=== PATIENT | male | born 1970 | race Caucasian/White ===

== ENCOUNTER 2016-06-28 06:01 | Emergency (ER) | payer OTHER ==
[~2016-06-28] VITALS: Ht 185.4 cm; Wt 110.1 kg
[2016-06-28 06:05] VITALS: TEMP 36.9; Ht 185.4 cm; Wt 110.1 kg
[2016-06-28] MEDS ORDERED: IBUP1CAP9 PO (06:31)
[2016-06-28] MEDS ORDERED: ALBUT/IPRATROP 3MG/0.5MG NEB 3 ML VIAL INH STA (06:48)
[2016-06-28] MEDS ORDERED: SODIUM CHLORIDE 0.9% 1000ML 2,000 ML IV STA (06:48)
--- NOTE | 2016-06-28 07:05 | EMERGENCY ROOM VISIT NOTE ---
History Report prepared by Jeromeibfreddy: Nikunj Jara Under the Supervision of: Dr. Hilary Hoffmann M.D. First contact with patient: 06:41 Chief Complaint: FLU LIKE SX Stated Complaint: FEVER,SOB,CHEST PAINS,ACHE ALL OVER,VOMITING History of Present Illness The patient is a 46 year old male who presents to the Emergency Room with complaints of persistent flu-like symptoms that started five days ago. The patient notes that he became febrile three days ago. This morning his temperature reached 103.5, which prompted his visit to the ED. The patient's other symptoms include headache, shortness of breath, generalized body aches, vomiting, and diarrhea. The patient's vomit and stools did not contain blood. The patient had ibuprofen prior to arrival. He denies any significant history of headaches. The patient smokes one pack of cigarettes per day. Source of History: patient Onset: five days ago Position: other (global) Quality: other (flu-like symptoms) Timing: other (persistent) Associated Symptoms: + SOB, + diarrhea, + fevers, + headache, + nausea, + vomiting Review of Systems See HPI for pertinent positives & negatives. A total of 10 systems reviewed and were otherwise negative. Past Medical & Surgical Tobacco dependency Social History Smoking Status: Current Every Day Smoker Alcohol Use: none Drug Use: none Marital Status: Housing Status: lives with family Occupation Status: employed Current/Historical Medications Scheduled Amoxicillin & Pot Clavulanate (Augmentin 875-125 mg), 875 MG PO BID Scheduled PRN Ibuprofen (Ibuprofen), 800 MG PO DAILY PRN for Pain or Fever Allergies Coded Allergies: No Known Allergies (Unverified , 06/28/16) Physical Exam Vital Signs Date Time Temp Pulse Resp B/P Pulse Ox O2 Delivery O2 Flow Rate FiO2 06/28/16 08:48 102 20 134/83 98 06/28/16 07:14 102 20 130/82 98 Room Air 06/28/16 06:05 36.9 114 24 126/82 96 Room Air Physical Exam Vital signs reviewed. General: Disheveled, malodorous male, in no significant distress. HEENT: No scleral icterus, PERRLA, neck supple. Atraumatic. Cardiovascular: Mildly tachycardic, regular rhythm, no extra sounds. Pulmonary: Clear to auscultation bilaterally, normal work of breathing. Abdomen: Soft, nontender, nondistended, positive bowel sounds. Musculoskeletal: Atraumatic, no peripheral edema. Neurologic: Patient awake alert and oriented x 3, full strength in all 4 extremities. Cranial nerves 2 through 12 grossly intact. Skin: Warm, dry, no rash Medical Decision & Procedures ER Provider Diagnostic Interpretation: X-ray results as stated below per my interpretation and radiologist interpretation. Other radiology results as stated below per my review and radiologist interpretation: CHEST 2 VIEWS ROUTINE CLINICAL HISTORY: fever, cough dyspnea COMPARISON STUDY: No previous studies for comparison. FINDINGS: Subtle bronchovascular prominence. No focal infiltrate. No evidence for significant cardiac enlargement. Diaphragms smooth. IMPRESSION: Mild bronchitis. No focal infiltrate. Electronically signed by: Param Restrepo M.D. 06/28/2016 7:52 AM Dictated Date/Time: 06/28/2016 7:[address]AST CT DOSE: 537.48 mGy.cm HISTORY: Dyspnea MAY mental status change TECHNIQUE: Multiaxial CT images of the head were performed without the use of intravenous contrast. Comparison: None. Findings: Moderate mucosal thickening of the sinuses. Mastoid air cells are clear. Air-fluid level within the right maxillary sinus. The calvarium and skull base are intact. The ventricles and sulci are within normal limits. There is no mass, hematoma, midline shift, or acute infarct. Impression: No acute intracranial abnormality. Moderate sinus disease Electronically signed by: Param Restrepo M.D. 06/28/2016 7:40 AM Dictated Date/Time: 06/28/2016 7:37 AM Laboratory Results 06/28/16 07:15 Red Blood Count 4.12, Mean Corpuscular Volume 99.8, Mean Corpuscular Hemoglobin 34.2, Mean Corpuscular Hemoglobin Concent 34.3, Mean Platelet Volume 9.9, Neutrophils (%) (Auto) 83.1, Lymphocytes (%) (Auto) 8.9, Monocytes (%) (Auto) 7.5, Eosinophils (%) (Auto) 0.1, Basophils (%) (Auto) 0.3, Neutrophils # (Auto) 5.89, Lymphocytes # (Auto) 0.63, Monocytes # (Auto) 0.53, Eosinophils # (Auto) 0.01, Basophils # (Auto) 0.02 06/28/16 07:15 Test 06/28/16 07:15 White Blood Count 7.09 K/uL (4.8-10.8) Red Blood Count 4.12 M/uL (4.7-6.1) Hemoglobin 14.1 g/dL (14.0-18.0) Hematocrit 41.1 % (42-52) Mean Corpuscular Volume 99.8 fL (80-100) Mean Corpuscular Hemoglobin 34.2 pg (25-34) Mean Corpuscular Hemoglobin Concent 34.3 g/dl (32-36) Platelet Count 219 K/uL (130-400) Mean Platelet Volume 9.9 fL (7.4-10.4) Neutrophils (%) (Auto) 83.1 % Lymphocytes (%) (Auto) 8.9 % Monocytes (%) (Auto) 7.5 % Eosinophils (%) (Auto) 0.1 % Basophils (%) (Auto) 0.3 % Neutrophils # (Auto) 5.89 K/uL (1.4-6.5) Lymphocytes # (Auto) 0.63 K/uL (1.2-3.4) Monocytes # (Auto) 0.53 K/uL (0.11-0.59) Eosinophils # (Auto) 0.01 K/uL (0-0.5) Basophils # (Auto) 0.02 K/uL (0-0.2) RDW Standard Deviation 46.7 fL (36.4-46.3) RDW Coefficient of Variation 12.7 % (11.5-14.5) Immature Granulocyte % (Auto) 0.1 % Immature Granulocyte # (Auto) 0.01 K/uL (0.00-0.02) Anion Gap 8.0 mmol/L (3-11) Est Creatinine Clear Calc Drug Dose 93.3 ml/min Estimated GFR () 76.4 Estimated GFR (Non- 65.9 BUN/Creatinine Ratio 13.1 (10-20) Calcium Level 8.2 mg/dl (8.5-10.1) Total Bilirubin 0.2 mg/dl (0.2-1) Direct Bilirubin < 0.1 mg/dl (0-0.2) Aspartate Amino Transf (AST/SGOT) 32 U/L (15-37) Alanine Aminotransferase (ALT/SGPT) 32 U/L (12-78) Alkaline Phosphatase 71 U/L (45-117) Total Protein 6.6 gm/dl (6.4-8.2) Albumin 3.6 gm/dl (3.4-5.0) Influenza Type A Antigen POS for Influ A (NEG) Influenza Type B Antigen Neg for Influ B (NEG) Laboratory results per my review. Medications Administered Medications (Trade) Dose Ordered Sig/Dionna Route Start Time Stop Time Status Last Admin Dose Admin Albuterol/ Ipratropium 3 ml 3 ml NOW STAT INH 06/28/16 06:48 06/28/16 06:50 DC 06/28/16 07:13 3 ML Sodium Chloride 2,000 ml @ 999 mls/hr Q2H1M STAT IV 06/28/16 06:48 06/28/16 08:48 DC 06/28/16 07:13 999 MLS/HR Ampicillin Sodium/ Sulbactam Sodium/ Sodium Chloride (Unasyn Inj/Nss 100ml) 108 ml @ 200 mls/hr ONE ONCE IV 06/28/16 08:00 06/28/16 08:32 DC 06/28/16 08:23 200 MLS/HR Acetaminophen (Tylenol Tab) 650 mg NOW STAT PO 06/28/16 07:57 06/28/16 07:58 DC 06/28/16 08:24 650 MG Amoxicillin/ Clavulanate Potassium (Augmentin Tab) 875 mg ONE ONCE PO 06/28/16 08:30 06/28/16 08:31 DC 06/28/16 08:26 875 MG ECG Indication: SOB/dyspnea Rate (beats per minute): 101 Rhythm: sinus tachycardia Findings: nonspecific-ST abn (Anterolateral), no ectopy ED Course 0645: Past medical records reviewed. The patient was evaluated in room B2. A complete history and physical examination was performed. 0648: NSS 2000 ml @ 999 mls/hr, DuoNeb 3 ml INH. 0757: Tylenol 650 mg PO. 0800: Ampicillin Sodium / Sulbactam Sodium 3000 mg / NSS 108 ml @ 200 mls/hr. 0825: Reassessed the patient. Discussed the findings with him. He verbalized understanding of the treatment plan. The patient is ready for discharge. 0830: Augmentin 875 mg PO. Medical Decision Differential diagnosis: Influenza, other viral illness, pneumonia, urinary tract infection, metabolic abnormality, medication effect, cellulitis, meningitis, intra-abdominal source. This patient was evaluated and appeared to be in some discomfort. IV access was obtained and laboratory work was drawn. The patient was placed on the groundwater monitoring technician. CT scan of the head was performed due to patient's complaint of headache. This study is indicative of an acute sinusitis. Patient was hydrated with normal saline solution, given a DuoNeb treatment. Patient was placed on Unasyn 3 g IV due to complaints of nausea and vomiting and the apparent sinus infection. Patient will be placed on Augmentin 875 mg twice daily for 10 days. Patient has tested positive for influenza A. He is outside of the window of treatment with Tamiflu. He will continue Tylenol and ibuprofen as needed for pain or fever and drink plenty of fluids. He will follow-up with his physician for reevaluation this week and return to the ER for worsening symptoms or any medical concerns. Impression Primary Impression: Sinusitis, acute maxillary Additional Impression: Influenza Scribe Attestation The scribe's documentation has been prepared under my direction and personally reviewed by me in its entirety. I confirm that the note above accurately reflects all work, treatment, procedures, and medical decision making performed by me. Departure Information Dispostion Home / Self-Care Prescriptions Amoxicillin & Pot Clavulanate (Augmentin 875-125 mg) 1 Tab Tab 875 MG PO BID for 10 Days, #20 TAB Prov: Hilary Hoffmann M.D. 06/28/16 Referrals Bassam Coles M.D.([facility]) (PCP) Forms HOME CARE DOCUMENTATION FORM, IMPORTANT VISIT INFORMATION Patient Instructions My [facility] Additional Instructions Diagnosis: Influenza, acute sinusitis Augmentin 875 mg twice daily for 10 days. Afrin nasal spray to sprays every 12 hours for 3 days. Tylenol 650 mg every 6 hours as needed for pain or fever. Ibuprofen 600 mg every 6 hours as needed for pain or fever. Drink plenty of clear fluids. Follow-up with your physician this week for reevaluation. Return to the ER for worsening of symptoms or any medical concerns. Problem Qualifiers Primary Impression: Sinusitis, acute maxillary Recurrence: not specified as recurrent Qualified Codes: J01.00 - Acute maxillary sinusitis, unspecified
[2016-06-28 07:37] LABS: BASO % 0.3 %; BASO ABS # 0.02 K/uL (0-0.2); COMPLETE YES; EOS % 0.1 %; HEMATOCRIT 41.1 % (42-52); IG% 0.1 %; LYMPH % 8.9 %; LYMPH ABS # 0.63 K/uL (1.2-3.4); MEAN CELL VOLUME 99.8 fL (80-100); MEAN CORPUSCULAR HEMOGLOBIN 34.2 pg (25-34); MEAN CORPUSCULAR HGB CONC 34.3 g/dl (32-36); MEAN PLATELET VOLUME 9.9 fL (7.4-10.4); MONO % 7.5 %; NEUT % 83.1 %; PLATELET COUNT 219 K/uL (130-400); RED BLOOD COUNT 4.12 M/uL (4.7-6.1); WHITE BLOOD COUNT 7.09 K/uL (4.8-10.8)
--- NOTE | 2016-06-28 07:41 | DIAGNOSTIC IMAGING REPORT ---
HEAD CT NONCONTRAST CT DOSE: 537.48 mGy.cm HISTORY: Dyspnea MAY mental status change TECHNIQUE: Multiaxial CT images of the head were performed without the use of intravenous contrast. Comparison: None. Findings: Moderate mucosal thickening of the sinuses. Mastoid air cells are clear. Air-fluid level within the right maxillary sinus. The calvarium and skull base are intact. The ventricles and sulci are within normal limits. There is no mass, hematoma, midline shift, or acute infarct. Impression: No acute intracranial abnormality. Moderate sinus disease Electronically signed by: Param Restrepo M.D. 06/28/2016 7:40 AM Dictated Date/Time: 06/28/2016 7:37 AM
[2016-06-28 07:47] LABS: ALT/SGPT 32 U/L (12-78); BLOOD UREA NITROGEN 17 mg/dl (7-18); BUN/CREATININE RATIO 13.1 (10-20); CALCIUM 8.2 mg/dl (8.5-10.1); CARBON DIOXIDE 26 mmol/L (21-32); CHLORIDE 105 mmol/L (98-107); GLUCOSE 103 mg/dl (70-99); POTASSIUM 4.1 mmol/L (3.5-5.1); SODIUM 139 mmol/L (136-145)
[2016-06-28 07:50] LABS: ALKALINE PHOSPHATASE 71 U/L (45-117); AST/SGOT 32 U/L (15-37)
--- NOTE | 2016-06-28 07:53 | DIAGNOSTIC IMAGING REPORT ---
CHEST 2 VIEWS ROUTINE CLINICAL HISTORY: fever, cough dyspnea COMPARISON STUDY: No previous studies for comparison. FINDINGS: Subtle bronchovascular prominence. No focal infiltrate. No evidence for significant cardiac enlargement. Diaphragms smooth. IMPRESSION: Mild bronchitis. No focal infiltrate. Electronically signed by: Param Restrepo M.D. 06/28/2016 7:52 AM Dictated Date/Time: 06/28/2016 7:51 AM
[2016-06-28] MEDS ORDERED: ACETAMINOPHEN 325 MG TAB PO STA (07:57)
[2016-06-28] MEDS ORDERED: AMPICILLIN/SULBACTAM SOD INJ 3,000 MG in SODIUM CHLORIDE 0.9% 100ML 100 ML IV ONE (08:00)
[2016-06-28] MEDS ORDERED: AMOX875T PO (08:23)
[2016-06-28] MEDS ORDERED: AMOXICILLIN/CLAVULANATE TAB 875 MG TAB PO ONE (08:30)
[2016-06-28 08:48] VITALS: BP 134/83; PULSE 102; O2SAT 98
== END 2016-06-28 08:49 | disposition home or self-care (01) ==
LOC: C.EDB 06:02
DX: J01.00 Acute maxillary sinusitis, unspecified (principal); F17.200 Nicotine dependence, unspecified, uncomplicated